=== PATIENT | female | born 1990 | race African-American/Black ===

== ENCOUNTER 2016-07-07 12:13 | Outpatient (CLI) | payer OTHER ==
[2016-07-07] MEDS ORDERED: GADOBUTROL 7.5 MMOL/7.5 ML VIAL IVP ONE (13:08)
== END 2016-07-07 12:14 | disposition home or self-care (01) ==
DX: G35 Multiple sclerosis (principal)
CPT/HCPCS: 70553; A9585

== ENCOUNTER 2016-12-19 12:51 | Outpatient (CLI) | payer OTHER ==
[2016-12-19] MEDS ORDERED: GADOBUTROL 7.5 MMOL/7.5 ML VIAL IVP ONE (13:22)
--- NOTE | 2016-12-19 15:47 | MRI Report ---
EXAM: MRI BRAIN WITHOUT AND WITH CONTRAST EXAM DATE: 12/19/2016 01:48 PM. CLINICAL HISTORY: MULTIPLE SCLEROSIS. COMPARISON: MRI brain 07/07/2016 TECHNIQUE: Multiplanar, multisequence T1-weighted and fluid-sensitive MR sequences of the brain were performed. Sequences optimized for routine evaluation. Other: None. Without and with IV Contrast: Yes . 7.5 mL Gadavist FINDINGS: Brain Volume: Mild to moderate diffuse cerebral volume loss with exvacuo dilatation of the ventricles , slightly advanced for age. Parenchyma/Dura: No masses, infarcts, or hemorrhage. Scattered T2/hyperintense white matter lesions a re again seen, primarily within in the periventricular white matter, some with corresponding T1 hypoi ntensities. The lesions are compatible with demyelinating plaques. Compared to the prior study from 0 07/07/2016, the following new lesions are seen: A 7 mm lesion left temporal pole (series 601 image 9), a 6 mm right temporal periventricular lesion (series 601 image 10). No abnormal intracranial enhance ment to suggest active inflammation/demyelination. Ventricles/Cisterns: Mild ex vacuo dilatation. Sinuses: Normal. No sinusitis evident. Bones: Normal. Other: Partially empty sella appearance is noted, may represent empty sella syndrome. IMPRESSION: 1. Scattered T2/hyperintense white matter lesions are again seen, primarily within in the periventric ular white matter, some with corresponding T1 hypointensities. The lesions are compatible with demyel inating plaques. 2. Compared to the prior study from 07/07/2016, the following new lesions are seen: A 7 mm lesion lef t temporal pole (series 601 image 9), a 6 mm right temporal periventricular lesion (series 601 image 10). 3. No abnormal intracranial enhancement to suggest active inflammation/demyelination. 4. Mild diffuse cerebral volume loss with ex vacuo dilatation of the ventricles, qualitatively slight ly advanced for age. [facility] Referring Provider Line: [phone] SITE ID: [id number]
== END 2016-12-19 12:52 | disposition home or self-care (01) ==
LOC: DI 12:51
PROVIDERS: ATTEND Pain Medicine Pain Medicine
DX: G35 Multiple sclerosis (principal); R90.89 Other abnormal findings on diagnostic imaging of central nervous system; G93.9 Disorder of brain, unspecified
CPT/HCPCS: 70553; A9585